=== PATIENT | female | born 1990 | race Caucasian/White ===

== ENCOUNTER 2017-10-22 23:35 | Inpatient (IN) | payer OTHER ==
[~2017-10-22] VITALS: Ht 165.1 cm; Wt 56.7 kg
--- NOTE | 2017-10-22 23:40 | NUR ---
TERESO PEÑA AT BEDSIDE FOR MSE.
[2017-10-22] MEDS ORDERED: IV NORMAL SALINE 1000 ML BAG IV ONE (23:45)
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
[2017-10-23] LABS: BASOPHILS # (AUTO) 0.1 K/uL (0.0-8.0); BASOPHILS % (AUTO) 0.6 % (0.0-2.0); EOSINOPHILS # (AUTO) 0.1 K/uL (0.0-0.7); EOSINOPHILS % (AUTO) 0.7 % (0.0-7.0); HEMATOCRIT 43.2 % (31.2-41.9); HEMOGLOBIN 14.9 g/dL (10.9-14.3); LYMPHOCYTES # (AUTO) 4.5 K/uL (20.0-40.0); MEAN CORPUSCULAR HGB CONC 35 g/dL (32.3-35.6); MEAN CORPUSCULAR VOLUME 84.1 fL (75.5-95.3); MONOCYTES % (AUTO) 7.6 % (0.0-11.0); NEUTROPHILS # (AUTO) 7.2 K/uL (1.8-8.9); NEUTROPHILS % (AUTO) 56.1 % (38.5-71.5); PLATELET COUNT (AUTO) 323 K/uL (179-408); RED BLOOD CELL COUNT(AUTO) 5.14 MIL/uL (3.63-4.92); WHITE BLOOD COUNT (AUTO) 12.9 K/uL (3.8-11.8)
[2017-10-23 00:11] LABS: ETHANOL < 3 MG/DL (0-0)
[2017-10-23 00:13] LABS: *BILIRUBIN,URIN 1+ (NEGATIVE); *BLOOD, URINE NEGATIVE (NEGATIVE); *CLARITY,URINE CLEAR (CLEAR); *COLOR,URINE YELLOW (YELLOW); *KETONES,URINE TRACE (NEGATIVE); *PROTEIN,URINE 1+ (NEGATIVE); LEUKOCYTE ESTERASE ,URINE NEGATIVE (NEGATIVE); NITRITE, URINE NEGATIVE (NEGATIVE); PH,URINE 7.5 (5.0-8.0); UGLUCOSE NEGATIVE (NEGATIVE)
[2017-10-23 00:15] LABS: *URINE HCG, QUAL NEGATIVE (NEGATIVE); BACTERIA,URINE NONE SEEN /HPF (NONE SEEN); RBC,URINE NONE SEEN /HPF (0-3); SQUAMOUS EPITHELIAL CELL,UR FEW /HPF (NONE SEEN); WBC,URINE 0-3 /HPF (0-3)
[2017-10-23 00:26] LABS: *AMPHETAMINE, URINE POSITIVE (NEGATIVE); *BARBITURATE, URINE NEGATIVE (NEGATIVE); *CANNABINOID, URINE POSITIVE (NEGATIVE); *COCCAINE, URINE POSITIVE (NEGATIVE); *OPIATE, URINE POSITIVE (NEGATIVE); *PHENCYCLIDINE SCREEN,URINE NEGATIVE (NEGATIVE)
[2017-10-23 00:32] LABS: CARBON DIOXIDE 27 mmol/L (21-32); CHLORIDE 99 mmol/L (98-107); CREATININE 0.9 mg/dL (0.6-1.3); GLUCOSE 109 mg/dL (74-106); POTASSIUM 3.4 mmol/L (3.5-5.1); UREA NITROGEN, BLOOD 14 mg/dL (7-18)
[2017-10-23 00:38] LABS: ACETAMINOPHEN < 2.0 ug/mL (10-30); ALANINE AMINOTRANSFERASE 32 U/L (14-59); ALKALINE PHOSPHATASE 99 U/L (50-136); ASPARTATE AMINOTRANSFERASE 25 U/L (15-37); BILIRUBIN,DIRECT 0.1 mg/dL (0.0-0.2); BILIRUBIN,TOTAL 0.5 mg/dL (0.2-1.0); TOTAL PROTEIN, SERUM 8.6 g/dL (6.4-8.2)
[2017-10-23] MEDS ORDERED: POTASSIUM CHLORIDE 10 MEQ TAB.PRT.SR PO ONE (01:15)
[2017-10-23] MEDS ORDERED: ONDANSETRON 4 MG/2 ML VIAL IV ONE (01:15)
[2017-10-23] MEDS ORDERED: IV NORMAL SALINE 1000 ML BAG IV ONE (01:15)
[2017-10-23] MEDS ORDERED: ONDANSETRON 4 MG/2 ML VIAL ONE (01:44)
[2017-10-23] MEDS ORDERED: POTASSIUM CHLORIDE 10 MEQ TAB.PRT.SR ONE (01:44)
--- NOTE | 2017-10-23 01:46 | NUR ---
PT BEDDING AND GOWN CHANGED, PT PROVIDED BED BATH AFTER LARGE LOOSE BM WELL PT VOMITED UPON REPOSITIONING.
--- NOTE | 2017-10-23 02:02 | NUR ---
XRAY AT PT BEDSIDE. PT IS UNABLE TO SIT STILL FOR XRAY, SO PT IS TEMPORARILY PUT 2 POINT SOFT MEDICAL RESTRAINTS FOR IMAGING PURPOSES. NO DISTRESS NOTED AT THIS TIME.
--- NOTE | 2017-10-23 02:08 | NUR ---
SOFT MEDICAL RESTRAINTS REMOVED POST X RAY. PT TOLERATED PROCEDURE WELL.
--- NOTE | 2017-10-23 03:19 | NUR ---
PT'S BOYFRIEND CALLED TO LEAVE CONTACT INFO: AMY [phone]
[2017-10-23] MEDS ORDERED: METOCLOPRAMIDE HCL 10 MG/2 ML VIAL ONE (03:21)
[2017-10-23] MEDS ORDERED: METOCLOPRAMIDE HCL 10 MG/2 ML VIAL IV ONE (03:30)
--- NOTE | 2017-10-23 03:38 | NUR ---
PT MOMENTARILY AWAKE. WHEN ASKED IF SHE KNEW WHERE SHE WAS, SHE REPLIED "IN A HOSPITAL." STATED SHE "DID TOO MUCH HEROIN". PT FELL BACK ASLEEP.
[2017-10-23] MEDS ORDERED: NALOXONE HCL 0.4 MG/ML AMPUL ONE (05:17)
--- NOTE | 2017-10-23 05:22 | NUR ---
Call placed to [facility], Dr. Haywood will be paged.
[2017-10-23] MEDS ORDERED: NALOXONE HCL 0.4 MG/ML AMPUL IV ONE (05:30)
--- NOTE | 2017-10-23 05:44 | NUR ---
2nd call placed to [facility], Dr. Haywood will be paged.
--- NOTE | 2017-10-23 05:55 | NUR ---
KEI speaking with Dr. Haywood.
--- NOTE | 2017-10-23 06:00 | NUR ---
PT HAS NOT BEEN AWAKE LONG ENOUGH TO TAKE PO POTASSIUM. UNABLE TO AROUSE TO TAKE MED.
--- NOTE | 2017-10-23 06:37 | NUR ---
NEW ADMIT FROM ER ADMITTED FOR ALTERED MENTAL STATUS, SHE'S AOX2 AND FORGETFUL. SHE'S DENIES PAIN OR ANY DISCOMFORT. PATIENT IS VERY LETHARGY AND UNABLE TO ANSWER QUESTIONS. SAFETY MEASURES INITIATED, CALL LIGHT WITHIN PATIENT'S REACH
[2017-10-23 06:51] VITALS: BP 109/77
--- NOTE | 2017-10-23 07:00 | NUR ---
Received client in bed sleeping, arousable to name but seems lethargic. Noted they client with no s/s of pain, distress or discomfort or SOB. Bed at lowest position for safety and call light within reach for assistance. No IV running at this time and waiting for MD orders
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
[2017-10-23] MEDS ORDERED: ACETAMINOPHEN 325 MG TABLET PO PRN (10:30)
[2017-10-23] MEDS ORDERED: ONDANSETRON 4 MG/2 ML VIAL IV PRN (10:30)
[2017-10-23] MEDS ORDERED: POTASSIUM CHLORIDE 20 MEQ in IV NS 1000 ML 1,000 ML IV PRN (10:30)
[2017-10-23] MEDS ORDERED: HYDROCODONE/APAP 5-325MG TABLET PO PRN (10:30)
[2017-10-23] MEDS ORDERED: MAGNESIUM HYDROXIDE 30 ML LIQUID UDC PO PRN (10:30)
[2017-10-23] MEDS ORDERED: MORPHINE SULFATE 2 MG/1 ML DISP.SYRIN IV PRN (10:30)
[2017-10-23] MEDS ORDERED: LORAZEPAM 2 MG/1 ML VIAL IV PRN (10:30)
--- NOTE | 2017-10-23 11:06 | NUR ---
Noted with clear, liquidly and yellow diarrhea. Assisted with diaper change. Client was able to answer questions after repeating the importance of them,
--- NOTE | 2017-10-23 11:21 | NUR ---
Client stated she has body pains on and off. Client is also noted to doze on and off while talking to her but noted to continuously moves in bed, New will be started as ordered
[2017-10-23 11:30] VITALS: BP 90/52
--- NOTE | 2017-10-23 11:34 | NUR ---
Ativan gives as requested client and as ordered by MD. Explained medication to client, client acknowledged the information by nodding her head but was verbally non-responsive.
--- NOTE | 2017-10-23 11:49 | NUR ---
Hydration started at 90cc/hr, 20meq potassium chloride with normal saline. Extension set attached and saline flushed beforehand, patent and intact line running with fluids with no s/s of infection, redness or infiltration. Client tolerating well
[2017-10-23] MEDS ORDERED: MORPHINE SULFATE 4 MG/1 ML DISP.SYRIN IV PRN (12:15)
--- NOTE | 2017-10-23 14:28 | NUR ---
Ashleigh Garcia saw client, client was able to answer question and refused [facility] at [facility]. Provide client with a diaper change and noted with diarrhea, yellow and green color and watery, cleansed with warm water and soap and dried. Ordered z-guard for noted redness around the anal area due to diarrhea episodes. Client states she is thirsty and provided her with apple juice, her lunch is by bedside. Gave her Zofran and pain medication morphine as she states she has generalized body pains off and on, BP is now 112/72 and 114/72. Pain medication was held earlier today because of on and off unresponsiveness and low BP of 90/52. Phone was provided for her because she stated she needs to make an outside call.
[2017-10-23] MEDS ORDERED: Z GUARD REMEDY PASTE 57 GM TUBE TOP PRN (14:30)
[2017-10-23 15:40] VITALS: BP 93/56
--- NOTE | 2017-10-23 16:05 | NUR ---
Noted a male visitor to enter client's room at his time
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
[2017-10-23] MEDS ORDERED: DOCUSATE SODIUM 100 MG CAPSULE PO SCH (21:00)
[2017-10-24] MEDS ORDERED: PANTOPRAZOLE SODIUM 40 MG TABLET.DR PO SCH (07:00)
== END 2017-10-23 16:30 | disposition left against medical advice (07) | DRG 917 ==
LOC: ER 23:36 → EDBD 23:36 → TELE 10-23 06:09
PROVIDERS: ATTEND Internal Medicine
DX: T42.4X1A Poisoning by benzodiazepines, accidental (unintentional), initial encounter (principal); G92 Toxic encephalopathy; Y92.89 Other specified places as the place of occurrence of the external cause; E87.6 Hypokalemia; E86.0 Dehydration
CPT/HCPCS: 36415; 71045; 80307; 84703; 85025; 85730; 93005; A4663; G0480; G0480-TC; J2060; J2270; J2310; J2405; J2765; J3480; J7030